=== PATIENT | female | born 1955 | race Hispanic/Latino ===

== ENCOUNTER 2022-07-31 20:05 | Emergency (ER) | payer OTHER ==
[~2022-07-31] VITALS: Ht 167.6 cm; Wt 103.4 kg
[2022-07-31] MEDS ORDERED: TRAMADOL HCL 50 MG TAB PO STA (20:45)
[2022-07-31] MEDS ORDERED: TRAMADOL HCL 50 MG TAB ONE (20:59)
[2022-07-31] MEDS ORDERED: ULTRAM 50MG50 MG PO (22:05)
[2022-07-31 22:09] VITALS: BP 129/65
== END 2022-07-31 22:09 | disposition home or self-care (01) ==
LOC: ER 20:10
DX: I83.813 Varicose veins of bilateral lower extremities with pain (principal)
CPT/HCPCS: 93970; 99283